=== PATIENT | female | born 1945 | race Caucasian/White ===

== ENCOUNTER 2022-02-04 08:44 | Emergency (ER) | payer OTHER ==
[2022-02-04] MEDS ORDERED: ATARAX25 MG PO (10:35)
[2022-02-04] MEDS ORDERED: TRIAMCINOLONE454 GM TOP (10:35)
== END 2022-02-04 10:55 | disposition home or self-care (01) ==
LOC: FER 08:44
DX: L30.9 Dermatitis, unspecified (principal); I10 Essential (primary) hypertension; Z88.0 Allergy status to penicillin; Z88.6 Allergy status to analgesic agent; Z88.8 Allergy status to other drugs, medicaments and biological substances; Z79.899 Other long term (current) drug therapy; Z87.891 Personal history of nicotine dependence
CPT/HCPCS: 99282

== ENCOUNTER 2022-05-04 15:55 | Emergency (ER) | payer OTHER ==
[~2022-05-04 15:55] MED LIST: ATARAX25 MG PO; TRIAMCINOLONE454 GM TOP
[2022-05-04 16:32] LABS: BASOPHIL 0.4 % (0-2); EOSINOPHIL 3.4 % (0-7); HCT 34.1 % (37.0-47.0); LYMPHOCYTE 12.5 % (15-48); MCH 28.7 pg (25.0-31.0); MCHC 32.3 g/dL (32.0-36.0); MONOCYTE 8.1 % (0-12); MPV 12.2 fL (6.0-9.5); NRBC 0; PLT 221 K/uL (150-400); RBC 3.83 M/uL (4.20-5.40); RDW 12.8 % (11.5-14.0); WBC 11.9 K/uL (4.0-10.5)
[2022-05-04 16:42] LABS: INR 1.14 (0.9-1.2); PROTHROMBIN TIME 14.3 SECONDS (11.9-13.9); PTT 35.7 SECONDS (24.9-34.6)
[2022-05-04 16:53] LABS: LACTIC ACID 2.2 mmol/L (0.4-1.9)
[2022-05-04 17:00] LABS: ALBUMIN 3.1 g/dL (3.4-5.0); ALKALINE PHOSHATASE 85 U/L (46-116); ALT 20 U/L (14-59); AST 31 U/L (15-37); BILIRUBIN - TOTAL 1.2 mg/dL (0.2-1.0); BUN 32 mg/dL (7-18); BUN/CREAT RATIO (CALC) 17.6 RATIO; CHLORIDE 99 mmol/L (98-107); CO2 (BICARBONATE) 24 mmol/L (21-32); CREATININE 1.82 mg/dL (0.51-0.95); GLOBULIN (CALCULATION) 4.5 g/dL; GLUCOSE 121 mg/dL (74-106); LIPASE 137 U/L (73-393); MAGNESIUM 2.1 mg/dL (1.8-2.4); POTASSIUM 3.3 mmol/L (3.5-5.1); TOTAL PROTEIN 7.6 g/dL (6.4-8.2)
[2022-05-04 17:46] LABS: CORONAVIRUS 2019 SARS-COV-2 NEGATIVE (NEGATIVE); INFLUENZA A NAA NEGATIVE (NEGATIVE)
== END 2022-05-04 20:54 | disposition other institution (70) ==
LOC: FER 15:55
PROVIDERS: Emergency Medicine
DX: A41.9 Sepsis, unspecified organism (principal); J18.9 Pneumonia, unspecified organism; R65.21 Severe sepsis with septic shock; I21.4 Non-ST elevation (NSTEMI) myocardial infarction; Z88.0 Allergy status to penicillin; Z88.8 Allergy status to other drugs, medicaments and biological substances; Z88.6 Allergy status to analgesic agent; Z20.822 Contact with and (suspected) exposure to COVID-19
CPT/HCPCS: 36415; 36600; 71250; 80053; 82728; 82803; 83605; 83615; 83690; 83735; 83880; 84145; 84439; 84443; 84484; 85025; 85610; 85730; 86140; 87040; 93005; G0480; J2543; J7030; J7040; J7050; U0002

== ENCOUNTER 2022-05-30 23:43 | Emergency (ER) | payer OTHER ==
[2022-05-31 00:10] LABS: BASOPHIL 0.3 % (0-2); EOSINOPHIL 5.4 % (0-7); HCT 25.1 % (37.0-47.0); HGB 8.1 g/dl (12.5-16.0); LYMPHOCYTE 14.5 % (15-48); MCHC 32.3 g/dL (32.0-36.0); MONOCYTE 9.4 % (0-12); MPV 12.2 fL (6.0-9.5); NRBC 0; PLT 224 K/uL (150-400); RDW 14.6 % (11.5-14.0); WBC 7.9 K/uL (4.0-10.5)
[2022-05-31 00:26] LABS: ALBUMIN 2.4 g/dL (3.4-5.0); BILIRUBIN - TOTAL 0.3 mg/dL (0.2-1.0); CREATININE 2.82 mg/dL (0.51-0.95); GLOBULIN (CALCULATION) 3.9 g/dL; POTASSIUM 5.3 mmol/L (3.5-5.1); TOTAL PROTEIN 6.3 g/dL (6.4-8.2)
[2022-05-31 00:28] LABS: LACTIC ACID 0.5 mmol/L (0.4-1.9)
[2022-05-31 01:23] LABS: INR 1.16 (0.9-1.2); PROTHROMBIN TIME 14.5 SECONDS (11.9-13.9); PTT 39.2 SECONDS (24.9-34.6)
[2022-05-31 03:29] LABS: BILIRUBIN NEGATIVE (NEGATIVE); BLOOD NEGATIVE Ery/uL (NEGATIVE); CLARITY CLEAR (CLEAR); COLOR YELLOW (YELLOW); GLUCOSE (U) NORMAL (NORMAL); LEUKOCYTES 1+ Leu/uL (NEGATIVE); NITRITE NEGATIVE (NEGATIVE); PROTEIN NEGATIVE (NEGATIVE); UROBILINOGEN 0.2 mg/dL (0.2-1.0); pH 5.5 (5.0-9.0)
[2022-05-31 03:36] LABS: BACTERIA 1+; YEAST PRESENT
[2022-05-31 04:29] LABS: CORONAVIRUS 2019 SARS-COV-2 NEGATIVE (NEGATIVE); INFLUENZA A NAA NEGATIVE (NEGATIVE)
[2022-05-31 06:34] LABS: HCT 30.3 % (37.0-47.0); HGB 9.9 g/dL (12.5-16.0)
== END 2022-05-31 08:10 | disposition other institution (70) ==
LOC: FER 23:43
PROVIDERS: Emergency Medicine
DX: R57.8 Other shock (principal); I50.9 Heart failure, unspecified; Z88.6 Allergy status to analgesic agent; Z20.822 Contact with and (suspected) exposure to COVID-19
CPT/HCPCS: 36415; 36430; 70450; 71250; 80053; 81001; 83605; 83880; 84145; 84484; 85014; 85018; 85025; 85610; 85730; 87040; 87088; 93005; 96365; 96366; 96367; 96375; C9113; J1940; J2310; P9016; U0002